=== PATIENT | female | born 1935 | race Caucasian/White ===

== ENCOUNTER 2017-12-22 10:20 | Emergency (ER) | payer MEDICARE, OTHER ==
[~2017-12-22 10:20] MED LIST: AMLO2.5T PO; ASPI-587 PO; LOSA1TAB23 PO; OMEG1CAP51 PO; OMEP20CA12 PO
== END 2017-12-22 11:05 | disposition left against medical advice (07) ==
LOC: EDUNIT# 10:20 → ER 10:21
DX: R03.0 Elevated blood-pressure reading, without diagnosis of hypertension (principal)

== ENCOUNTER → 2017-12-23 | Outpatient (CLI) | payer MEDICARE, OTHER ==
[2017-12-23 11:06] LABS: CREATINE KINASE 41 U/L (29-168)
== END ==
LOC: CARD 10:22
PROVIDERS: ATTEND Nurse Practitioner Family
DX: I10 Essential (primary) hypertension (principal)
CPT/HCPCS: 36415; 82550; 84484; 93005

== ENCOUNTER → 2018-01-14 | Outpatient (CLI) | payer MEDICARE, OTHER ==
--- NOTE | 2018-01-14 18:53 | Diagnostic Imaging Report ---
INDICATION: Worsening back pain over the last 6-8 months. TIME OF EXAM: 10:37 AM FINDINGS: Mild left convexity lumbar scoliotic curvature is seen. There is normal lordotic curvature. The vertebral body heights are maintained. No acute compression fracture is detected. There is multilevel degenerative disc disease with variable disc space narrowing and marginal spurring. Vacuum disc is seen at the L3-L4 level. There are atherosclerotic calcifications in the abdominal aorta. IMPRESSION: Lumbar spondylosis and scoliosis. No acute compression fracture is identified. Dictated by: Dictated on workstation # [id number]
== END ==
LOC: RAD 10:07
PROVIDERS: ATTEND Family Medicine
DX: M47.816 Spondylosis without myelopathy or radiculopathy, lumbar region (principal); M41.86 Other forms of scoliosis, lumbar region
CPT/HCPCS: 72100

== ENCOUNTER → 2018-04-10 10:57 | Outpatient (RCR) | payer MEDICARE, OTHER | END | disposition home or self-care (01) | PROVIDERS: ATTEND Nurse Practitioner Family | DX: M51.36 Other intervertebral disc degeneration, lumbar region (principal) ==

== ENCOUNTER → 2020-11-07 | Outpatient (CLI) | payer MEDICARE, OTHER ==
--- NOTE | 2020-11-07 14:13 | Diagnostic Imaging Report ---
EXAMINATION: Chest 2 views. HISTORY: Cough. COMPARISON: 01/07/2014 FINDINGS: Heart size and pulmonary vasculature are normal. The lungs are clear without consolidation, pleural effusion, or pneumothorax. The osseous structures are intact. IMPRESSION: 1. No acute radiographic abnormality in the chest. Dictated by: Dictated on workstation # [id number]
== END ==
LOC: RAD 11:36
PROVIDERS: ATTEND Family Medicine
DX: R05 Cough (principal)
CPT/HCPCS: 71046

== ENCOUNTER 2021-02-17 15:51 | Emergency (ER) | payer MEDICARE, OTHER ==
[~2021-02-17] VITALS: Ht 157.5 cm; Wt 70.3 kg
[2021-02-17 15:56] VITALS: BP 189/66
[2021-02-17] MEDS ORDERED: DICL100G13 TP (16:54)
--- NOTE | 2021-02-17 16:54 | ED Upper Extremity ---
General Chief Complaint: Upper Extremity Stated Complaint: FALL ON 02/15 ARM PAIN Nursing Triage Note: PT AMB TO [facility] W REPORTS OF RIGHT UPPER ARM PAIN SX SATURDAY MORNING WHEN SHE FELL OUT OF BED. DENIES HITTING HER HEAD OR LOC. REPORTS PAIN IS SIGNIFICANTLY WORSE WHEN SHE RAISES HER ARM. DENIES ELBOW AND SHOULDER PAIN. PT A&OX4. Source: patient Exam Limitations: no limitations History of Present Illness Date Seen by Provider: Feb 17, 2021 Time Seen by Provider: 16:50 Initial Comments To ER with right arm pain since Saturday when she fell out of one of the hotel beds landing on the right arm. She is concerned it might be broken. Her pain is in the mid right humerus Onset: just prior to arrival Severity: moderate Pain/Injury Location: right arm Method of Injury: unknown Modifying Factors: Worse With Movement Allergies and Home Medications Allergies Coded Allergies: Sulfa (Sulfonamide Antibiotics) (Unverified Adverse Reaction, Unknown, 01/07/14) reaction when had Daily Fever Patient Home Medication List Home Medication List Reviewed: Yes Amlodipine Besylate (Amlodipine Besylate) 2.5 Mg Tablet, 2.5 MG PO HS, (Reported) Entered as Reported by: MARK ELENA on 01/07/14 1313 Aspirin (Aspir 81) 81 Mg Tablet.dr, 81 MG PO TWICE A WEEK, (Reported) Entered as Reported by: MARK ELENA on 01/07/14 1322 Diclofenac Sodium (Diclofenac Sodium) 100 Gm Gel..gram., 4 GM TP QID Prescribed by: DEANDRE APODACA on 02/17/21 1654 Losartan/Hydrochlorothiazide (Losartan-Hctz 100-25 Mg Tab) 1 Each Tablet, 1 TAB PO DAILY, (Reported) Entered as Reported by: MARK ELENA on 01/07/14 1313 [place]-3 Fatty Acids/Fish Oil (Fish Oil 1,000 Mg Softgel) 1 Each Capsule, 1,000 MG PO BID, (Reported) Entered as Reported by: MARK ELENA on 01/07/14 1322 Omeprazole (Omeprazole) 20 Mg Capsule.dr, 20 MG PO HS, (Reported) Entered as Reported by: MARK ELENA on 01/07/14 1313 Review of Systems Constitutional: see HPI EENTM: see HPI Respiratory: no symptoms reported Cardiovascular: no symptoms reported Genitourinary: no symptoms reported Musculoskeletal: see HPI Skin: no symptoms reported Psychiatric/Neurological: No Symptoms Reported Past Lsfvort-Auffqy-Oyjewg Hx Patient Social History Tobacco Use?: No Smoking Status: Never a Smoker Use of E-Cig and/or Vaping dev: No Substance use?: No Alcohol Use?: No Immunizations Up To Date Influenza Vaccine Up-to-Date: Yes; Up-to-Date First/Initial COVID19 Vaccinat: MAY 2020 Second COVID19 Vaccination Julián: JUNE 2020 COVID19 Vaccine Metal Leaf Layer: RENNY Past Medical History Surgery/Hospitalization HX: APPENDECTOMY, HYSTERECTOMY Reproductive Disorders: No Gastroesophageal Reflux Cataract Hearing Impairment: Bilateral Hearing Aide Family Medical History FH: CHF (congestive heart failure) 19 FATHER FH: breast cancer in first degree relative 19 MOTHER Physical Exam Vital Signs Vital Signs - First Documented 02/17/21 15:56 Temp 37.0 Pulse 77 Resp 18 B/P (MAP) 189/66 (107) Pulse Ox 96 O2 Delivery Room Air Capillary Refill : Less Than 3 Seconds Height, Weight, BMI Height: 5'4" Weight: 160lbs. oz. 72.038493ui; 28.00 BMI Method:Stated General Appearance: WD/WN, no apparent distress HEENT: PERRL/EOMI, normal ENT inspection Respiratory: no respiratory distress, no accessory muscle use Shoulder: normal inspection, limited ROM (Limited abduction secondary to pain. The mid humerus is not swollen there is no rash there is no edema ecchymosis or erythema. There is pain with abduction at the shoulder. I suspect the shoulder is actually her source of pain.) Wrist: Yes normal inspection Hand: normal inspection, non-tender Neurologic/Tendon: normal sensation, normal motor functions Neurologic/Psychiatric: alert, normal mood/affect, oriented x 3 Skin: normal color, warm/dry Progress/Results/Core Measures Results/Orders My Orders Orders - DEANDRE APODACA APRN Humerus, Right, 2 Views (02/17/21 16:02) Vital Signs/I&O 02/17/21 15:56 Temp 37.0 Pulse 77 Resp 18 B/P (MAP) 189/66 (107) Pulse Ox 96 O2 Delivery Room Air Blood Pressure Mean: 107 Departure Communication (Admissions) there does appear to be a nondisplaced fracture of the greater tuberosity of the humeral head. I will put her in a sling and give her Voltaren topical. Impression Primary Impression: Internal derangement of right shoulder Additional Impression: Greater tuberosity of humerus fracture Disposition: 01 HOME, SELF-CARE Condition: Stable Departure-Patient Inst. Decision time for Depature: 16:52 Referrals: DENISE LOPEZ DO (PCP/Family) Primary Care Physician Patient Instructions: Shoulder Pain (DC) Add. Discharge Instructions: 1. Apply the Voltaren cream as directed. Follow-up with Dr. Lopez next week.Sling on when youre up moving around. All discharge instructions reviewed with patient and/or family. Voiced understanding. Scripts Tramadol HCl (Ultram) 50 Mg Tablet 50 MG PO Q6H PRN for PAIN-MODERATE (5-7), #10 TAB Prov: DEANDRE APODACA APRN 02/17/21 Diclofenac Sodium (Diclofenac Sodium) 100 Gm Gel..gram. 4 GM TP QID, #1 TUBE 1 Refill Prov: DEANDRE APODACA APRN 02/17/21 DEANDRE APODACA APRN Feb 17, 2021 16:54
--- NOTE | 2021-02-17 16:56 | Diagnostic Imaging Report ---
INDICATION: Fall. EXAMINATION: Right humerus from 02/17/2021. FINDINGS: Two views of the humerus. On the frontal view only, there is a questionable lucency at the greater tuberosity; correlate for point tenderness. The remaining osseous structures are intact. No dislocations. IMPRESSION: 1. Lucency along the greater tuberosity which could represent a nondisplaced fracture, correlate for point tenderness. Otherwise, negative humerus. Dictated by: Dictated on workstation # [id number]
[2021-02-17] MEDS ORDERED: TRAM-42 PO (17:03)
== END 2021-02-17 17:40 | disposition home or self-care (01) ==
LOC: EDUNIT# 15:51 → ER 15:52
DX: S42.254A Nondisplaced fracture of greater tuberosity of right humerus, initial encounter for closed fracture (principal); K21.9 Gastro-esophageal reflux disease without esophagitis; Z79.82 Long term (current) use of aspirin; Z79.899 Other long term (current) drug therapy; W06.XXXA Fall from bed, initial encounter; Y92.59 Other trade areas as the place of occurrence of the external cause
CPT/HCPCS: 73060; 99282; A4565

== ENCOUNTER → 2021-03-02 | Outpatient (CLI) | payer MEDICARE, OTHER ==
[~2021-03-02] MED LIST changes: +DICL100G13 TP; +TRAM-42 PO
--- NOTE | 2021-03-02 15:18 | Diagnostic Imaging Report ---
INDICATION: Injury to the right shoulder. TIME OF EXAM: 2:39 PM Comparison is made with humerus radiograph from 02/17/2021. Glenohumeral and coracoclavicular alignment are normal. Acromiohumeral spaces normal. No definite fracture dislocation is seen. The questionable lucency noted through the greater tuberosity of the proximal right humerus is not well seen on today's study however the appropriate obliquity to see the greater tuberosity, the vascularity was not obtained. There are degenerative changes at the acromioclavicular joint. IMPRESSION: No acute abnormality identified. If there is continued concern for fracture of the greater tuberosity, additional obliquities of the right shoulder could be obtained. Consideration could also be given to performance of a CT. Dictated by: Dictated on workstation # [id number]
== END ==
LOC: ORTHO 14:21
PROVIDERS: ATTEND Orthopaedic Surgery
DX: S49.91XA Unspecified injury of right shoulder and upper arm, initial encounter (principal); X58.XXXA Exposure to other specified factors, initial encounter
CPT/HCPCS: 73030

== ENCOUNTER → 2021-03-30 | Outpatient (CLI) | payer MEDICARE, OTHER ==
--- NOTE | 2021-03-30 10:27 | Diagnostic Imaging Report ---
INDICATION: Right shoulder pain. FINDINGS: 3 views show glenohumeral joint in good alignment. Articulating surfaces are smooth. AC joints in good alignment. There is a moderate hypertrophic change both superiorly and inferiorly about the AC joint. No soft tissue calcifications are seen. IMPRESSION: Moderate severe arthritic changes AC joint with hypertrophic bony changes as well. Dictated by: Dictated on workstation # [id number]
== END ==
LOC: ORTHO 09:46
PROVIDERS: ATTEND Orthopaedic Surgery
DX: M19.011 Primary osteoarthritis, right shoulder (principal); S42.254D Nondisplaced fracture of greater tuberosity of right humerus, subsequent encounter for fracture with routine healing; X58.XXXD Exposure to other specified factors, subsequent encounter
CPT/HCPCS: 73030; G0463; 99212

== ENCOUNTER → 2021-04-25 | Outpatient (CLI) | payer MEDICARE, OTHER | LOC: ORTHO 13:26 | PROVIDERS: ATTEND Orthopaedic Surgery | DX: S42.251A Displaced fracture of greater tuberosity of right humerus, initial encounter for closed fracture (principal); X58.XXXA Exposure to other specified factors, initial encounter | CPT/HCPCS: 99212 ==

== ENCOUNTER 2021-05-11 15:26 | Outpatient (RCR) | payer MEDICARE, OTHER | END 2021-05-12 | disposition home or self-care (01) | PROVIDERS: ATTEND Orthopaedic Surgery | DX: S42.254D Nondisplaced fracture of greater tuberosity of right humerus, subsequent encounter for fracture with routine healing (principal); I10 Essential (primary) hypertension; W19.XXXD Unspecified fall, subsequent encounter ==

== ENCOUNTER 2021-05-25 09:00 | Outpatient (RCR) | payer MEDICARE, OTHER | END 2021-05-25 09:41 | disposition home or self-care (01) | PROVIDERS: ATTEND Orthopaedic Surgery | DX: S42.254D Nondisplaced fracture of greater tuberosity of right humerus, subsequent encounter for fracture with routine healing (principal); W19.XXXD Unspecified fall, subsequent encounter ==

== ENCOUNTER 2021-07-04 13:29 | Outpatient (RCR) | payer MEDICARE, OTHER | END 2021-07-10 | disposition home or self-care (01) | PROVIDERS: ATTEND Family Medicine | DX: M54.16 Radiculopathy, lumbar region (principal); I10 Essential (primary) hypertension ==

== ENCOUNTER 2021-07-19 08:26 | Outpatient (RCR) | payer MEDICARE, OTHER | END 2021-08-10 | disposition home or self-care (01) | PROVIDERS: ATTEND Family Medicine | DX: M54.16 Radiculopathy, lumbar region (principal); I10 Essential (primary) hypertension ==

== ENCOUNTER → 2021-11-02 | Outpatient (CLI) | payer MEDICARE, OTHER ==
--- NOTE | 2021-11-02 13:57 | Diagnostic Imaging Report ---
INDICATION: Low back pain. COMPARISON with 01/14/2018. FINDINGS: 3 views. Levoscoliosis is again noted, unchanged in degree. There has been considerable progression of degenerative disc disease with hypertrophic endplate changes predominantly on the right at L2-L3 and L3-L4 disc spaces. Some vacuum phenomena present, as well. SI joints are symmetric with mild sclerotic change. Aorta is atherosclerotic and ectatic without definite aneurysm. IMPRESSION: 1. Moderate levoscoliosis mid lumbar region with rather advanced degenerative disc disease now at L2-L3 and L3-L4 with sclerotic endplate changes and hypertrophy as well as vacuum phenomena. There has been considerable progression of arthritic change since the previous exam. Dictated by: Dictated on workstation # [id number]
== END ==
LOC: RAD
PROVIDERS: ATTEND Family Medicine
DX: M41.86 Other forms of scoliosis, lumbar region (principal); M51.36 Other intervertebral disc degeneration, lumbar region
CPT/HCPCS: 72100

== ENCOUNTER 2021-11-08 10:02 | Outpatient (RCR) | payer MEDICARE, OTHER | END 2021-11-09 | PROVIDERS: ATTEND Nurse Practitioner Family | DX: M54.16 Radiculopathy, lumbar region (principal); I10 Essential (primary) hypertension ==

== ENCOUNTER → 2021-11-29 | Outpatient (CLI) | payer MEDICARE, OTHER ==
--- NOTE | 2021-11-29 09:50 | Diagnostic Imaging Report ---
Indication: Pre-MRI screening AP and lateral views of the orbits are obtained No metallic foreign body over the orbits is seen. Bony structures appear unremarkable. There are no sinus fluid levels IMPRESSION: No evidence of metallic foreign body over the orbits. Dictated by: Dictated on workstation # [id number]
--- NOTE | 2021-11-29 12:47 | Diagnostic Imaging Report ---
PROCEDURE: MRI lumbar spine without contrast. TECHNIQUE: Multiplanar, multisequence MRI of the lumbar spine was performed without contrast. INDICATION: Low back pain with left leg radiculopathy. COMPARISON: 11/02/2021. FINDINGS: 5 lumbar type vertebral bodies are visualized with the last well-formed disc space designated L5-S1. No acute fracture or dislocation is seen in the lumbar spine. There is left convexity curvature of the lumbar spine. Vertebral body heights are well-maintained. Modic type II endplate degenerative changes are present at the L2-L3 and L3-L4 levels. The conus terminates at the L1 level. No masses are seen associated with the conus or nerve roots of the cauda equina. No epidural collections are identified. Multilevel degenerative changes are seen in the lumbar spine with disc bulges, facet hypertrophy, and buckling of the ligamentum flavum. T12-L1: No significant spinal canal or foraminal stenosis. L1-L2: Facet hypertrophy and disc desiccation results in mild spinal canal narrowing and mild bilateral foraminal narrowing. L2-L3: Disc desiccation, marginal osteophytes, and facet hypertrophy results in mild spinal canal narrowing, [id number] right lateral recess narrowing, and moderate right and [id number] left foraminal narrowing. L3-L4: Broad-based disc bulge, facet hypertrophy, and buckling of the ligamentum flavum results in no significant spinal canal narrowing and moderate to severe right and moderate left foraminal stenosis. L4-L5: Broad-based disc bulge, facet hypertrophy, and buckling of the ligamentum flavum results in mild spinal canal narrowing and moderate right and moderate to severe left foraminal stenosis. L5-S1: Broad-based disc bulge, facet hypertrophy, and buckling of the ligamentum flavum results in no significant spinal canal narrowing and mild right and moderate to severe left foraminal stenosis. Paravertebral soft tissues are unremarkable. A exophytic focus is seen off the inferior pole of the left kidney measuring 1.8 cm. This does not demonstrate simple cystic characteristics. IMPRESSION: 1. No acute fracture or dislocation in the lumbar spine. 2. Multilevel degenerative changes in the lumbar spine, greatest at L3-L4 and L4-L5. 3. Modic type II endplate degenerative changes at the L2-L3 and L3-L4 levels. 4. Lesion off the inferior pole the left kidney measuring 1.8 cm. This does not demonstrate simple cystic characteristics and further evaluation with contrast-enhanced CT of the abdomen and pelvis is recommended. Dictated by: Dictated on workstation # [id number]
== END ==
LOC: RAD 09:30
PROVIDERS: ATTEND Family Medicine
DX: Z01.818 Encounter for other preprocedural examination (principal); M54.16 Radiculopathy, lumbar region
CPT/HCPCS: 72148

== ENCOUNTER 2021-11-30 10:38 | Outpatient (RCR) | payer MEDICARE, OTHER | END 2021-12-10 | disposition home or self-care (01) | PROVIDERS: ATTEND Nurse Practitioner Family | DX: M54.32 Sciatica, left side (principal) ==

== ENCOUNTER → 2022-12-18 | Outpatient (CLI) | payer MEDICARE, OTHER | LOC: CARD 11:38 | PROVIDERS: ATTEND Family Medicine | DX: I51.7 Cardiomegaly (principal); I35.8 Other nonrheumatic aortic valve disorders | CPT/HCPCS: 93306 ==

== ENCOUNTER 2023-03-11 11:09 | Outpatient (RCR) | payer MEDICARE, OTHER ==
[~2023-03-11 11:09] MED LIST changes: -DICL100G13 TP; +DICL100G60 TP
== END 2023-03-12 | disposition home or self-care (01) ==
PROVIDERS: ATTEND Physical Medicine & Rehabilitation
DX: I63.89 Other cerebral infarction (principal)

== ENCOUNTER 2023-03-14 13:32 | Outpatient (RCR) | payer MEDICARE, OTHER | END 2023-03-14 14:25 | disposition home or self-care (01) | PROVIDERS: ATTEND Physical Medicine & Rehabilitation | DX: I69.359 Hemiplegia and hemiparesis following cerebral infarction affecting unspecified side (principal) ==